=== PATIENT | male | born 1975 | race Hispanic/Latino ===

== ENCOUNTER 2018-01-19 09:55 | Inpatient (IN) | payer SELFPAY ==
[2018-01-19 09:57] VITALS: BMI 19.6
[2018-01-19] MEDS ORDERED: Sodium Chloride 0.9% 1,000 ML IV STA ×2 (10:06→13:17)
--- NOTE | 2018-01-19 10:10 | ED PDOC ---
HPI: Abdomen Time Seen by Provider: 01/19/18 10:00 Chief Complaint (Provider): substance abuse, abdominal pain History Per: Patient History/Exam Limitations: no limitations Onset/Duration Of Symptoms: Hrs (last night) Current Symptoms Are (Timing): Still Present Associated Symptoms: Nausea, Vomiting. denies: Fever, Chills Additional Complaint(s): Zeke Messina is a 42 year old male, with no significant past medical history, who presents to the emergency department complaining of abdominal pain associated with nausea and vomiting after drinking alcohol and ingesting fentanyl last night. He denies any fever or chills. No further medical complaints. PMD: None provided. Past Medical History Reviewed: Historical Data, Nursing Documentation, Vital Signs Vital Signs: Last Vital Signs Temp 97.6 F 01/19/18 09:58 Pulse 73 01/19/18 09:58 Resp 16 01/19/18 09:58 BP 140/75 01/19/18 09:58 Pulse Ox 96 01/19/18 09:58 - Medical History PMH: No Chronic Diseases - Surgical History Surgical History: No Surg Hx - Family History Family History: States: Unknown Family Hx - Allergies Allergies/Adverse Reactions: Allergies Allergy/AdvReac Type Severity Reaction Status Date / Time No Known Allergies Allergy Verified 01/19/18 10:05 Review of Systems ROS Statement: Except As Marked, All Systems Reviewed And Found Negative Constitutional: Negative for: Fever, Chills Gastrointestinal: Positive for: Nausea, Vomiting, Abdominal Pain Physical Exam - Reviewed Nursing Documentation Reviewed: Yes Vital Signs Reviewed: Yes - Physical Exam Appears: Positive for: No Acute Distress Head Exam: Positive for: ATRAUMATIC, NORMAL INSPECTION, NORMOCEPHALIC Skin: Positive for: Normal Color, Warm, Dry Eye Exam: Positive for: Normal appearance, EOMI, PERRL Neck: Positive for: Normal, Painless ROM Cardiovascular/Chest: Positive for: Regular Rate, Rhythm. Negative for: Murmur Respiratory: Positive for: Normal Breath Sounds. Negative for: Respiratory Distress Gastrointestinal/Abdominal: Positive for: Normal Exam, Soft. Negative for: Tenderness, Guarding, Rebound Back: Positive for: Normal Inspection. Negative for: L CVA Tenderness, R CVA Tenderness, Vertebral Tenderness Extremity: Positive for: Normal ROM (upper and lower extremities). Negative for: Deformity, Swelling Neurologic/Psych: Positive for: Alert, Oriented. Negative for: Motor/Sensory Deficits - Laboratory Results Result Diagrams: 01/19/18 10:31 01/19/18 10:31 - ECG O2 Sat by Pulse Oximetry: 96 (RA) Pulse Ox Interpretation: Normal Medical Decision Making Medical Decision Making: Time: 10:00 Initial Plan: --Alcohol serum --CMP --Drug screen, urine --CBC w/ differential --Sodium Chloride 1,000 ml IV 250 mls/hr --Zofran Inj 4 mg IVP --Reevaluation Scribe Attestation: Documented by Lucas Prieto, acting as a scribe for Damion Merino MD. Provider Scribe Attestation: All medical record entries made by the Scribe were at my direction and personally dictated by me. I have reviewed the chart and agree that the record accurately reflects my personal performance of the history, physical exam, medical decision making, and the department course for this patient. I have also personally directed, reviewed, and agree with the discharge instructions and disposition. Disposition - Clinical Impression Clinical Impression: Pancreatitis - Patient ED Disposition Is Patient to be Admitted: Yes - Disposition Disposition Time: 17:50 Condition: FAIR - Pt Status Changed To: Hospital Disposition Of: Inpatient - Admit Certification Admit to Inpatient:: After my assessment, the patient will require hospitalization for at least two midnights. This is because of the severity of symptoms shown, intensity of services needed, and/or the medical risk in this patient being treated as an outpatient. - POA Present On Arrival: None
[2018-01-19 10:43] LABS: BASO # 0.1 K/uL (0.0-0.2); BASO % 0.8 % (0.0-2.0); HEMOGLOBIN 13.8 g/dL (12.0-18.0); LYMPH # 0.9 K/uL (1.0-4.3); MEAN CELL VOLUME 98.3 fl (80.0-94.0); MEAN CORPUSCULAR HEMOGLOBIN 33.2 pg (27.0-31.0); MEAN CORPUSCULAR HGB CONC 33.8 g/dL (33.0-37.0); MEAN PLATELET VOLUME 8.5 fl (7.2-11.7); MONO # 0.6 K/uL (0.0-0.8); MONO % 8.6 % (0.0-10.0); NEUT # 5.3 K/uL (1.8-7.0); NEUT % 77.6 % (50.0-75.0); NRBC % 0.2 % (0.0-0.0); RBC 4.15 Mil/uL (4.40-5.90); RED CELL DISTRIBUTION WIDTH 13.6 % (11.5-14.5); WHITE BLOOD COUNT 6.8 K/uL (4.8-10.8)
[2018-01-19 10:54] LABS: BLOOD UREA NITROGEN 24 mg/dl (9-20); GFR NON-AFRICAN AMERICAN > 60
[2018-01-19 10:55] LABS: ALB/GLOB RATIO 1.1 (1.0-2.1); ALBUMIN 4.9 g/dL (3.5-5.0); ALT/SGPT 107 U/L (21-72); AST/SGOT 243 U/L (17-59)
[2018-01-19 13:00] LABS: BENZODIAZEPINES, UR NEGATIVE (NEGATIVE)
[2018-01-19 13:14] LABS: BARBITURATES, UR NEGATIVE (NEGATIVE); OPIATES, UR POSITIVE (NEGATIVE); PHENCYCLIDINE, UR NEGATIVE (NEGATIVE)
--- NOTE | 2018-01-19 16:55 | US ---
Date of service: 01/19/2018 HISTORY: Elevated LFTS COMPARISON: None. TECHNIQUE: Sonographic evaluation of the right upper quadrant of the abdomen. FINDINGS: LIVER: Measures 19.8 cm in length. Diffusely increased echogenicity of the liver parenchyma. No mass. No intrahepatic bile duct dilatation. GALLBLADDER: Moderate gallbladder distention is seen with a few calculi in the lumen. No significant mural thickening. No pericholecystic fluid collection or reported sonographic Anthony sign. COMMON BILE DUCT: Measures 4.6 mm. No stones. No dilatation. PANCREAS: The pancreas completely obscured by overlying stomach or bowel gas. RIGHT KIDNEY: Measures 10.8 cm in length. Normal echogenicity. No calculus, mass, or hydronephrosis. AORTA: No aneurysmal dilatation. IVC: Unremarkable. OTHER FINDINGS: None . IMPRESSION: Cholelithiasis within a distended gallbladder which is otherwise unremarkable. Normal caliber CB D. No choledocholithiasis. Pancreas completely obscured by overlying bowel or stomach gas. Hepatomegaly and hepatic steatosis or other infiltrative hepatic process identified.
[2018-01-19] MEDS: Lactated Ringer's 1,000 ML IV SCH (19:06)
--- NOTE | 2018-01-19 19:12 | CP.PCM.HP ---
<Ed Quinonez - Last Filed: 01/19/18 21:29> History of Present Illness - History of Present Illness History of Present Illness: This is 42 y/o male with no significant PMH comes to ER for evaluation and treatment of acute alcohol intoxication, upper abdominal pain associated with nausea and vomiting. Patient reports last night, he was at friends house and they had too much to drink/Vodka. Patient reports no issue at night but in morning he found his friend in the appt. Patient started feeling b/l upper abdominal pain, diffuse, non-radiating, 6/10, sharp, no alleviating or aggravating factors, associated with nausea and multiple episodes of NBNB vomiting. Denies any trauma, dizziness, palpitations, chest pain, SOB, dysuria or weakness. Patient reports he is an alcoholic and trying to cut down. Patient reported ingesting fentanyl overnight to the ER Doctor. PMH: Denies PSH: Appendectomy Allg: KNDA Meds: None SH: Smoker, 1 pack per day, reports Alcohol abuse, denies any illicit drug use FH: Denies any cancers or DM/HTN, liver, gallbladder or pancreatic problems ROS: As per HPI ER course: VS: 97.6, HR 73, RR 16, 140/75, Spo2 96 CBC: No WBC CMP: AST/ALT/ALP/Lipase: 243/107/145/1492 U tox: + Opiates Alcohl: 115 H Abdo U/S: Cholelithiasis, non visible Pancreas S/p Pepcid, IVF, Reglan, Zofran, Fluids 2L Present on Admission - Present on Admission Any Indicators Present on Admission: No Past Patient History - Past Social History Smoking Status: Current Some Days Smoker - PSYCHIATRIC Hx Substance Use: Yes - SURGICAL HISTORY Hx Surgeries: No Meds Allergies/Adverse Reactions: Allergies Allergy/AdvReac Type Severity Reaction Status Date / Time No Known Allergies Allergy Verified 01/19/18 10:05 Physical Exam - Constitutional Appears: No Acute Distress - Head Exam Head Exam: NORMAL INSPECTION - Eye Exam Eye Exam: EOMI, Normal appearance, PERRL Pupil Exam: NORMAL ACCOMODATION - ENT Exam ENT Exam: Mucous Membranes Moist - Neck Exam Neck exam: Positive for: Normal Inspection - Respiratory Exam Respiratory Exam: Clear to Auscultation Bilateral, NORMAL BREATHING PATTERN. absent: Accessory Muscle Use, Chest Wall Tenderness, Respiratory Distress - Cardiovascular Exam Cardiovascular Exam: REGULAR RHYTHM, +S1 - GI/Abdominal Exam GI & Abdominal Exam: Normal Bowel Sounds, Soft. absent: Diminished Bowel Sounds, Organomegaly, Rebound, Rigid, Tenderness - Extremities Exam Extremities exam: Positive for: normal capillary refill, normal inspection, pedal pulses present. Negative for: pedal edema, tenderness - Back Exam Back exam: absent: CVA tenderness (L), CVA tenderness (R) - Neurological Exam Neurological exam: Alert, CN II-XII Intact, Oriented x3 - Psychiatric Exam Psychiatric exam: Normal Affect - Skin Skin Exam: Dry, Intact, Normal Color, Warm Results - Vital Signs Recent Vital Signs: Last Vital Signs Temp 97.6 F 01/19/18 09:58 Pulse 73 01/19/18 09:58 Resp 16 01/19/18 09:58 BP 140/75 01/19/18 09:58 Pulse Ox 96 01/19/18 17:50 - Labs Result Diagrams: 01/19/18 10:31 01/19/18 10:31 Labs: Laboratory Results - last 24 hr 01/19/18 01/19/18 01/19/18 10:31 10:31 10:31 WBC 6.8 RBC 4.15 L Hgb 13.8 Hct 40.7 MCV 98.3 H MCH 33.2 H MCHC 33.8 RDW 13.6 Plt Count 218 MPV 8.5 Neut % (Auto) 77.6 H Lymph % (Auto) 13.0 L Bennett % (Auto) 8.6 Eos % (Auto) 0.0 Baso % (Auto) 0.8 Neut # (Auto) 5.3 Lymph # (Auto) 0.9 L Bennett # (Auto) 0.6 Eos # (Auto) 0.0 Baso # (Auto) 0.1 Sodium 139 Potassium 4.8 Chloride 92 L Carbon Dioxide 29 Anion Gap 23 H BUN 24 H Creatinine 1.0 Est GFR ( Amer) > 60 Est GFR (Non-Af Amer) > 60 Random Glucose 107 Calcium 9.0 Total Bilirubin 1.5 H AST 243 H ALT 107 H Alkaline Phosphatase 145 H Total Protein 9.1 H Albumin 4.9 Globulin 4.3 H Albumin/Globulin Ratio 1.1 Lipase 1492 H Urine Opiates Screen Urine Methadone Screen Ur Barbiturates Screen Ur Phencyclidine Scrn Ur Amphetamines Screen U Benzodiazepines Scrn U Oth Cocaine Metabols U Cannabinoids Screen Alcohol, Quantitative 115 H 01/19/18 12:35 WBC RBC Hgb Hct MCV MCH MCHC RDW Plt Count MPV Neut % (Auto) Lymph % (Auto) Bennett % (Auto) Eos % (Auto) Baso % (Auto) Neut # (Auto) Lymph # (Auto) Bennett # (Auto) Eos # (Auto) Baso # (Auto) Sodium Potassium Chloride Carbon Dioxide Anion Gap BUN Creatinine Est GFR ( Amer) Est GFR (Non-Af Amer) Random Glucose Calcium Total Bilirubin AST ALT Alkaline Phosphatase Total Protein Albumin Globulin Albumin/Globulin Ratio Lipase Urine Opiates Screen Positive H Urine Methadone Screen Negative Ur Barbiturates Screen Negative Ur Phencyclidine Scrn Negative Ur Amphetamines Screen Negative U Benzodiazepines Scrn Negative U Oth Cocaine Metabols Negative U Cannabinoids Screen Negative Alcohol, Quantitative Assessment & Plan - Assessment and Plan (Free Text) Assessment: A/P: 42 y/o male with no significant PMH comes to ER for evaluation and treatment of acute alcohol intoxication, upper abdominal pain associated with nausea and vomiting. Upper abdominal pain 2/2 Acute Pancreatitis - Elevated Lipase - S/p 2L IVF - C/w Fluids - Symptomatic treatment: C/w pain management: Morphine - C/w Zofran PRN - NPO - Follow up CMP and Lipase in morning Cholelithiasis on U/S - AST/ALT/ALP/Lipase: 243/107/145/1492 - NPO, c/w fluid, c/w pain management - Possible elective surgical as out-patient Acute Alcohol intoxication - C/w Banana bag IV - CIWA Protocol - Ativan PRN Q6H for CIWA >8 - Monitor for withdrawal - Follow up CMP, HBA1C, B12, Folate, Mg, Phos DVT PPX - SCD for now <Oliver Jacques - Last Filed: 01/20/18 09:38> Results - Vital Signs Recent Vital Signs: Last Vital Signs Temp 98.5 F 01/20/18 08:23 Pulse 74 01/20/18 08:23 Resp 20 01/20/18 08:23 BP 135/80 01/20/18 08:23 Pulse Ox 96 01/20/18 08:23 - Labs Result Diagrams: 01/20/18 05:45 01/20/18 05:45 Labs: Laboratory Results - last 24 hr 01/19/18 01/19/18 01/19/18 10:31 10:31 10:31 WBC 6.8 RBC 4.15 L Hgb 13.8 Hct 40.7 MCV 98.3 H MCH 33.2 H MCHC 33.8 RDW 13.6 Plt Count 218 MPV 8.5 Neut % (Auto) 77.6 H Lymph % (Auto) 13.0 L Bennett % (Auto) 8.6 Eos % (Auto) 0.0 Baso % (Auto) 0.8 Neut # (Auto) 5.3 Lymph # (Auto) 0.9 L Bennett # (Auto) 0.6 Eos # (Auto) 0.0 Baso # (Auto) 0.1 Sodium 139 Potassium 4.8 Chloride 92 L Carbon Dioxide 29 Anion Gap 23 H BUN 24 H Creatinine 1.0 Est GFR ( Amer) > 60 Est GFR (Non-Af Amer) > 60 Random Glucose 107 Calcium 9.0 Phosphorus Magnesium Total Bilirubin 1.5 H AST 243 H ALT 107 H Alkaline Phosphatase 145 H Total Protein 9.1 H Albumin 4.9 Globulin 4.3 H Albumin/Globulin Ratio 1.1 Triglycerides Cholesterol LDL Cholesterol Direct HDL Cholesterol Lipase 1492 H Vitamin B12 Urine Opiates Screen Urine Methadone Screen Ur Barbiturates Screen Ur Phencyclidine Scrn Ur Amphetamines Screen U Benzodiazepines Scrn U Oth Cocaine Metabols U Cannabinoids Screen Alcohol, Quantitative 115 H 01/19/18 01/20/18 01/20/18 12:35 05:45 05:45 WBC 5.6 RBC 3.71 L Hgb 12.0 Hct 36.0 MCV 97.2 H MCH 32.3 H MCHC 33.2 RDW 13.6 Plt Count 106 L D MPV 8.0 Neut % (Auto) 73.8 Lymph % (Auto) 16.7 L Bennett % (Auto) 9.0 Eos % (Auto) 0.2 Baso % (Auto) 0.3 Neut # (Auto) 4.2 Lymph # (Auto) 0.9 L Bennett # (Auto) 0.5 Eos # (Auto) 0.0 Baso # (Auto) 0.0 Sodium 137 Potassium 3.7 Chloride 98 Carbon Dioxide 28 Anion Gap 15 BUN 17 Creatinine 0.8 Est GFR ( Amer) > 60 Est GFR (Non-Af Amer) > 60 Random Glucose 88 Calcium 8.5 Phosphorus 1.7 L Magnesium 2.1 Total Bilirubin 1.6 H AST 155 H D ALT 84 H D Alkaline Phosphatase 109 Total Protein 6.8 Albumin 3.7 Globulin 3.2 Albumin/Globulin Ratio 1.2 Triglycerides 65 Cholesterol 137 LDL Cholesterol Direct 70 HDL Cholesterol 59 Lipase 1645 H Vitamin B12 800 Urine Opiates Screen Positive H Urine Methadone Screen Negative Ur Barbiturates Screen Negative Ur Phencyclidine Scrn Negative Ur Amphetamines Screen Negative U Benzodiazepines Scrn Negative U Oth Cocaine Metabols Negative U Cannabinoids Screen Negative Alcohol, Quantitative Attending/Attestation - Attestation I have personally seen and examined this patient.: Yes I have fully participated in the care of the patient.: Yes I have reviewed all pertinent clinical information: Yes Notes (Text): Patient seen and examined with the resident, agree with above
[2018-01-19] MEDS ORDERED: Multivitamin (MVI) 10 ML, Thiamine 100 MG, Folic Acid 1 MG in Sodium Chloride 0.9% 1,00... IV ONE (20:00)
[2018-01-20] MEDS: Lactated Ringer's 1,000 ML IV SCH ×3 (03:48→21:09)
[2018-01-20 06:51] LABS: BASO % 0.3 % (0.0-2.0); EOS % 0.2 % (0.0-4.0); LYMPH # 0.9 K/uL (1.0-4.3); LYMPH % 16.7 % (20.0-40.0); MEAN CELL VOLUME 97.2 fl (80.0-94.0); MEAN CORPUSCULAR HEMOGLOBIN 32.3 pg (27.0-31.0); MEAN CORPUSCULAR HGB CONC 33.2 g/dL (33.0-37.0); MONO # 0.5 K/uL (0.0-0.8); NEUT # 4.2 K/uL (1.8-7.0); NEUT % 73.8 % (50.0-75.0); NRBC % 0.1 % (0.0-0.0); RBC 3.71 Mil/uL (4.40-5.90); RED CELL DISTRIBUTION WIDTH 13.6 % (11.5-14.5); WHITE BLOOD COUNT 5.6 K/uL (4.8-10.8)
[2018-01-20 07:03] LABS: ALB/GLOB RATIO 1.2 (1.0-2.1); ALBUMIN 3.7 g/dL (3.5-5.0); ALT/SGPT 84 U/L (21-72); AST/SGOT 155 U/L (17-59); BLOOD UREA NITROGEN 17 mg/dl (9-20); CALCIUM 8.5 mg/dL (8.4-10.2); GFR NON-AFRICAN AMERICAN > 60; HDL CHOLESTEROL 59 MG/DL (30-70); LIPASE 1645 U/L (23-300)
[2018-01-20 07:13] LABS: LDL CHOLESTEROL 70 mg/dL (0-129)
--- NOTE | 2018-01-20 09:22 | CP.PCM.PN ---
<Edie Castillo - Last Filed: 01/20/18 13:56> Subjective - Date & Time of Evaluation Date of Evaluation: 01/20/18 Time of Evaluation: 09:22 - Subjective Subjective: Patient seen and evaluated at bedside and is resting comfortably. Patient notes that he no longer feels nauseous, however notes that his mouth is very dry. He denies any pain today. Denies N/V/F/SOB/chills/CP. Objective - Vital Signs/Intake and Output Vital Signs (last 24 hours): Temp Pulse Resp BP Pulse Ox 98.5 F 74 20 135/80 96 01/20/18 08:23 01/20/18 08:23 01/20/18 08:23 01/20/18 08:23 01/20/18 08:23 - Medications Medications: Current Medications Famotidine (Pepcid) 20 mg IVP Q12 [facility] Last Admin: 01/19/18 21:53 Dose: 20 mg Lactated Ringer's (Lactated Ringer's) 1,000 mls @ 125 mls/hr IV .Q8H [facility] Last Admin: 01/20/18 03:48 Dose: Not Given Lorazepam (Ativan) 2 mg IVP Q6 PRN PRN Reason: Agitation Morphine Sulfate (Morphine) 2 mg IVP Q6 PRN PRN Reason: Pain, severe (8-10) Morphine Sulfate (Morphine) 1 mg IVP Q4 PRN PRN Reason: Pain, moderate (4-7) Ondansetron HCl (Zofran Inj) 4 mg IVP Q6 PRN PRN Reason: Nausea/Vomiting - Labs Labs: 01/20/18 05:45 01/20/18 05:45 - Constitutional Appears: Well, No Acute Distress - Head Exam Head Exam: NORMAL INSPECTION - Eye Exam Eye Exam: Normal appearance - Respiratory Exam Respiratory Exam: Clear to Ausculation Bilateral, NORMAL BREATHING PATTERN - Cardiovascular Exam Cardiovascular Exam: REGULAR RHYTHM - GI/Abdominal Exam GI & Abdominal Exam: Soft, Normal Bowel Sounds - Extremities Exam Extremities Exam: Normal Capillary Refill, Normal Inspection. absent: Calf Tenderness, Pedal Edema - Back Exam Back Exam: NORMAL INSPECTION - Neurological Exam Neurological Exam: Alert, Awake, Oriented x3 - Psychiatric Exam Psychiatric exam: Normal Affect, Normal Mood - Skin Skin Exam: Intact, Normal Color Assessment and Plan - Assessment and Plan (Free Text) Assessment: 42 yo male, with no significant PMH, with acute alcohol intoxication and acute pancreatitis with nausea and vomiting. Plan: 1) Acute Pancreatitis - Elevated Lipase, 1645 - S/p 2L IVF - C/w Fluids - Symptomatic treatment: C/w pain management: Morphine - C/w Zofran PRN - Advanced to clear liquid diet 2) Cholelithiasis on U/S - AST/ALT/ALP/Lipase: 155/84/109/1645 - c/w fluid, c/w pain management - Possible elective surgical as out-patient 3) Acute Alcohol intoxication - C/w Banana bag IV - CIWA Protocol - Ativan PRN Q6H for CIWA >8 - Monitor for withdrawal - Follow up HBA1C, Folate 4) DVT PPX - SCD <Sonya Billy - Last Filed: 01/20/18 16:05> Objective - Vital Signs/Intake and Output Vital Signs (last 24 hours): Temp Pulse Resp BP Pulse Ox 98.5 F 74 20 135/80 96 01/20/18 08:23 01/20/18 08:23 01/20/18 08:23 01/20/18 08:23 01/20/18 08:23 - Medications Medications: Current Medications Famotidine (Pepcid) 20 mg IVP Q12 [facility] Last Admin: 01/20/18 10:07 Dose: 20 mg Lactated Ringer's (Lactated Ringer's) 1,000 mls @ 125 mls/hr IV .Q8H [facility] Last Admin: 01/20/18 03:48 Dose: Not Given Lorazepam (Ativan) 2 mg IVP Q6 PRN PRN Reason: Agitation Morphine Sulfate (Morphine) 2 mg IVP Q6 PRN PRN Reason: Pain, severe (8-10) Morphine Sulfate (Morphine) 1 mg IVP Q4 PRN PRN Reason: Pain, moderate (4-7) Ondansetron HCl (Zofran Inj) 4 mg IVP Q6 PRN PRN Reason: Nausea/Vomiting - Labs Labs: 01/20/18 05:45 01/20/18 05:45 Attending/Attestation - Attestation I have personally seen and examined this patient.: Yes I have fully participated in the care of the patient.: Yes I have reviewed all pertinent clinical information, including history, physical exam and plan: Yes Notes (Text): 01/20/18 16:05 Seen examined and discussed with resident. Agree with findings and plan as above.
[2018-01-21] MEDS: Lactated Ringer's 1,000 ML IV SCH (03:40)
[2018-01-21 08:29] VITALS: BP 147/84; PULSE 70; RESP 20; TEMP 97.9; O2SAT 99
[2018-01-21] MEDS ORDERED: SULFACETAMIDE 10% OU SCH (10:00)
--- NOTE | 2018-01-21 11:11 | CP.PCM.DIS ---
<Edie Castlilo - Last Filed: 01/21/18 13:27> Provider - Provider Date of Admission: 01/19/18 17:50 Attending physician: Oliver Jacques Time Spent in preparation of Discharge (in minutes): 30 Hospital Course - Lab Results Lab Results: Most Recent Lab Values WBC 5.6 K/uL (4.8-10.8) 01/20/18 05:45 RBC 3.71 Mil/uL (4.40-5.90) L 01/20/18 05:45 Hgb 12.0 g/dL (12.0-18.0) 01/20/18 05:45 Hct 36.0 % (35.0-51.0) 01/20/18 05:45 MCV 97.2 fl (80.0-94.0) H 01/20/18 05:45 MCH 32.3 pg (27.0-31.0) H 01/20/18 05:45 MCHC 33.2 g/dL (33.0-37.0) 01/20/18 05:45 RDW 13.6 % (11.5-14.5) 01/20/18 05:45 Plt Count 106 K/uL (130-400) L D 01/20/18 05:45 MPV 8.0 fl (7.2-11.7) 01/20/18 05:45 Neut % (Auto) 73.8 % (50.0-75.0) 01/20/18 05:45 Lymph % (Auto) 16.7 % (20.0-40.0) L 01/20/18 05:45 [place] % (Auto) 9.0 % (0.0-10.0) 01/20/18 05:45 Eos % (Auto) 0.2 % (0.0-4.0) 01/20/18 05:45 Baso % (Auto) 0.3 % (0.0-2.0) 01/20/18 05:45 Neut # (Auto) 4.2 K/uL (1.8-7.0) 01/20/18 05:45 Lymph # (Auto) 0.9 K/uL (1.0-4.3) L 01/20/18 05:45 [place] # (Auto) 0.5 K/uL (0.0-0.8) 01/20/18 05:45 Eos # (Auto) 0.0 K/uL (0.0-0.7) 01/20/18 05:45 Baso # (Auto) 0.0 K/uL (0.0-0.2) 01/20/18 05:45 Sodium 137 mmol/l (132-148) 01/20/18 05:45 Potassium 3.7 MMOL/L (3.6-5.0) 01/20/18 05:45 Chloride 98 mmol/L (98-107) 01/20/18 05:45 Carbon Dioxide 28 mmol/L (22-30) 01/20/18 05:45 Anion Gap 15 (10-20) 01/20/18 05:45 BUN 17 mg/dl (9-20) 01/20/18 05:45 Creatinine 0.8 mg/dl (0.8-1.5) 01/20/18 05:45 Est GFR ( Amer) > 60 01/20/18 05:45 Est GFR (Non-Af Amer) > 60 01/20/18 05:45 Random Glucose 88 mg/dL (75-110) 01/20/18 05:45 Hemoglobin A1c 5.6 % (4.2-6.5) 01/20/18 05:45 Calcium 8.5 mg/dL (8.4-10.2) 01/20/18 05:45 Phosphorus 1.7 mg/dl (2.5-4.5) L 01/20/18 05:45 Magnesium 2.1 MG/DL (1.6-2.3) 01/20/18 05:45 Total Bilirubin 1.6 mg/dl (0.2-1.3) H 01/20/18 05:45 AST 155 U/L (17-59) H D 01/20/18 05:45 ALT 84 U/L (21-72) H D 01/20/18 05:45 Alkaline Phosphatase 109 U/L (38-126) 01/20/18 05:45 Total Protein 6.8 G/DL (6.3-8.2) 01/20/18 05:45 Albumin 3.7 g/dL (3.5-5.0) 01/20/18 05:45 Globulin 3.2 gm/dL (2.2-3.9) 01/20/18 05:45 Albumin/Globulin Ratio 1.2 (1.0-2.1) 01/20/18 05:45 Triglycerides 65 mg/DL (0-149) 01/20/18 05:45 Cholesterol 137 mg/dL (0-199) 01/20/18 05:45 LDL Cholesterol Direct 70 mg/dL (0-129) 01/20/18 05:45 HDL Cholesterol 59 MG/DL (30-70) 01/20/18 05:45 Lipase 1645 U/L (23-300) H 01/20/18 05:45 Vitamin B12 800 pg/mL (239-931) 01/20/18 05:45 Folate 8.0 ng/mL 01/19/18 19:00 Urine Opiates Screen Positive (NEGATIVE) H 01/19/18 12:35 Urine Methadone Screen Negative (NEGATIVE) 01/19/18 12:35 Ur Barbiturates Screen Negative (NEGATIVE) 01/19/18 12:35 Ur Phencyclidine Scrn Negative (NEGATIVE) 01/19/18 12:35 Ur Amphetamines Screen Negative (NEGATIVE) 01/19/18 12:35 U Benzodiazepines Scrn Negative (NEGATIVE) 01/19/18 12:35 U Oth Cocaine Metabols Negative (NEGATIVE) 01/19/18 12:35 U Cannabinoids Screen Negative (NEGATIVE) 01/19/18 12:35 Alcohol, Quantitative 115 mg/dl (0-10) H 01/19/18 10:31 - Hospital Course Hospital Course: 42 yo male, with no significant PMHx, with acute alcohol intoxication and acute pancreatitis with nausea and vomiting. Plan: 1) Acute Pancreatitis - Elevated Lipase, 1645 - S/p 2L IVF - C/w Fluids - C/w pain management: Morphine - C/w Zofran PRN - Advanced diet 2) Cholelithiasis on U/S - AST/ALT/ALP/Lipase: 155/84/109/1645 - c/w fluid, c/w pain management - Possible elective surgical as out-patient 3) Acute Alcohol intoxication - C/w Banana bag IV - CIWA Protocol - Ativan PRN Q6H for CIWA >8 - Monitor for withdrawal - Follow up HBA1C, Folate 42 yo male, with no PMHx, was admitted for acute pancreatitis. After nausea and vomiting resolved, his diet was advanced. After an uneventful hospital course, the patient was discharged home. - Date & Time of H&P Date of H&P: 01/21/18 Time of H&P: 10:26 Discharge Exam - Head Exam Head Exam: NORMAL INSPECTION - Eye Exam Pupil Exam: NORMAL ACCOMODATION - Respiratory Exam Respiratory Exam: NORMAL BREATHING PATTERN, UNREMARKABLE - Cardiovascular Exam Cardiovascular Exam: REGULAR RHYTHM - GI/Abdominal Exam GI & Abdominal Exam: Normal Bowel Sounds, Soft, Unremarkable - Extremities Exam Extremities exam: normal inspection - Neurological Exam Neurological exam: Alert, Oriented x3 - Psychiatric Exam Psychiatric exam: Normal Affect, Normal Mood - Skin Skin Exam: Intact, Normal Color Discharge Plan - Follow Up Plan Condition: FAIR Disposition: HOME/ ROUTINE Instructions: Pancreatitis (DC) Additional Instructions: follow up at [facility] 1 week Referrals: [facility] at [place] [Outside] <Sonya Billy - Last Filed: 01/21/18 13:58> Provider - Provider Date of Admission: 01/19/18 17:50 Attending physician: [facility] Course - Lab Results Lab Results: Most Recent Lab Values WBC 5.6 K/uL (4.8-10.8) 01/20/18 05:45 RBC 3.71 Mil/uL (4.40-5.90) L 01/20/18 05:45 Hgb 12.0 g/dL (12.0-18.0) 01/20/18 05:45 Hct 36.0 % (35.0-51.0) 01/20/18 05:45 MCV 97.2 fl (80.0-94.0) H 01/20/18 05:45 MCH 32.3 pg (27.0-31.0) H 01/20/18 05:45 MCHC 33.2 g/dL (33.0-37.0) 01/20/18 05:45 RDW 13.6 % (11.5-14.5) 01/20/18 05:45 Plt Count 106 K/uL (130-400) L D 01/20/18 05:45 MPV 8.0 fl (7.2-11.7) 01/20/18 05:45 Neut % (Auto) 73.8 % (50.0-75.0) 01/20/18 05:45 Lymph % (Auto) 16.7 % (20.0-40.0) L 01/20/18 05:45 [place] % (Auto) 9.0 % (0.0-10.0) 01/20/18 05:45 Eos % (Auto) 0.2 % (0.0-4.0) 01/20/18 05:45 Baso % (Auto) 0.3 % (0.0-2.0) 01/20/18 05:45 Neut # (Auto) 4.2 K/uL (1.8-7.0) 01/20/18 05:45 Lymph # (Auto) 0.9 K/uL (1.0-4.3) L 01/20/18 05:45 [place] # (Auto) 0.5 K/uL (0.0-0.8) 01/20/18 05:45 Eos # (Auto) 0.0 K/uL (0.0-0.7) 01/20/18 05:45 Baso # (Auto) 0.0 K/uL (0.0-0.2) 01/20/18 05:45 Sodium 137 mmol/l (132-148) 01/20/18 05:45 Potassium 3.7 MMOL/L (3.6-5.0) 01/20/18 05:45 Chloride 98 mmol/L (98-107) 01/20/18 05:45 Carbon Dioxide 28 mmol/L (22-30) 01/20/18 05:45 Anion Gap 15 (10-20) 01/20/18 05:45 BUN 17 mg/dl (9-20) 01/20/18 05:45 Creatinine 0.8 mg/dl (0.8-1.5) 01/20/18 05:45 Est GFR ( Amer) > 60 01/20/18 05:45 Est GFR (Non-Af Amer) > 60 01/20/18 05:45 Random Glucose 88 mg/dL (75-110) 01/20/18 05:45 Hemoglobin A1c 5.6 % (4.2-6.5) 01/20/18 05:45 Calcium 8.5 mg/dL (8.4-10.2) 01/20/18 05:45 Phosphorus 1.7 mg/dl (2.5-4.5) L 01/20/18 05:45 Magnesium 2.1 MG/DL (1.6-2.3) 01/20/18 05:45 Total Bilirubin 1.6 mg/dl (0.2-1.3) H 01/20/18 05:45 AST 155 U/L (17-59) H D 01/20/18 05:45 ALT 84 U/L (21-72) H D 01/20/18 05:45 Alkaline Phosphatase 109 U/L (38-126) 01/20/18 05:45 Total Protein 6.8 G/DL (6.3-8.2) 01/20/18 05:45 Albumin 3.7 g/dL (3.5-5.0) 01/20/18 05:45 Globulin 3.2 gm/dL (2.2-3.9) 01/20/18 05:45 Albumin/Globulin Ratio 1.2 (1.0-2.1) 01/20/18 05:45 Triglycerides 65 mg/DL (0-149) 01/20/18 05:45 Cholesterol 137 mg/dL (0-199) 01/20/18 05:45 LDL Cholesterol Direct 70 mg/dL (0-129) 01/20/18 05:45 HDL Cholesterol 59 MG/DL (30-70) 01/20/18 05:45 Lipase 1645 U/L (23-300) H 01/20/18 05:45 Vitamin B12 800 pg/mL (239-931) 01/20/18 05:45 Folate 8.0 ng/mL 01/19/18 19:00 Urine Opiates Screen Positive (NEGATIVE) H 01/19/18 12:35 Urine Methadone Screen Negative (NEGATIVE) 01/19/18 12:35 Ur Barbiturates Screen Negative (NEGATIVE) 01/19/18 12:35 Ur Phencyclidine Scrn Negative (NEGATIVE) 01/19/18 12:35 Ur Amphetamines Screen Negative (NEGATIVE) 01/19/18 12:35 U Benzodiazepines Scrn Negative (NEGATIVE) 01/19/18 12:35 U Oth Cocaine Metabols Negative (NEGATIVE) 01/19/18 12:35 U Cannabinoids Screen Negative (NEGATIVE) 01/19/18 12:35 Alcohol, Quantitative 115 mg/dl (0-10) H 01/19/18 10:31 Attending/Attestation - Attestation I have personally seen and examined this patient.: Yes I have fully participated in the care of the patient.: Yes I have reviewed all pertinent clinical information, including history, physical exam and plan: Yes Notes (Text): 01/21/18 13:58 Seen, examined, and discussed with resident. Agree with findings and plan as above.
== END 2018-01-21 12:10 | disposition home or self-care (01) | DRG 440 ==
LOC: H.ER 09:55 → H.ERHOLD 17:50 → H.MEDSURG1 23:07
PROVIDERS: ADMIT Hospitalist; ATTEND Hospitalist
DX: K85.90 Acute pancreatitis without necrosis or infection, unspecified (principal); K80.20 Calculus of gallbladder without cholecystitis without obstruction; F10.129 Alcohol abuse with intoxication, unspecified; Y90.5 Blood alcohol level of 100-119 mg/100 ml; F17.210 Nicotine dependence, cigarettes, uncomplicated